=== PATIENT | female | born 1965 | race Caucasian/White ===

== ENCOUNTER 2018-10-10 06:15 | Day surgery (SDC) | payer OTHER ==
[2018-10-10] MEDS ORDERED: hydrALAzine 20 MG INJ (08:19)
[2018-10-10] MEDS: hydrALAzine 20 MG INJ IV (08:20)
[2018-10-10] MEDS ORDERED: FENTAnyl 50 MCG/ML VIAL (09:48)
[2018-10-10] MEDS ORDERED: MIDAZOLAM 1 MG/ML 2 ML INJ (09:48)
[2018-10-10] MEDS ORDERED: ONDANSETRON 4 MG INJ (10:18)
[2018-10-10] MEDS ORDERED: LIDOCAINE 2% (SDV) 5 ML INJ (10:18)
[2018-10-10] MEDS ORDERED: PROPOFOL 20 ML (10:18)
[2018-10-10] MEDS ORDERED: DIPHENHYDRAMINE 50 MG INJ IV (10:30)
[2018-10-10] MEDS ORDERED: ONDANSETRON 4 MG INJ IV (10:30)
[2018-10-10] MEDS ORDERED: FENTAnyl 50 MCG/ML VIAL IV (10:30)
[2018-10-10] MEDS ORDERED: ACETAMINOPHEN 325 MG TAB PO (10:30)
[2018-10-10] MEDS ORDERED: METOCLOPRAMIDE 10 MG INJ IV (10:30)
[2018-10-10] MEDS ORDERED: HYDROmorphONE 1 MG/5 ML IV SYRINGE IV (10:30)
[2018-10-10] MEDS ORDERED: MEPERIDINE 25 MG INJ IV (10:30)
[2018-10-10] MEDS: HYDROmorphONE 1 MG/5 ML IV SYRINGE IV (11:48)
== END 2018-10-10 13:08 | disposition home or self-care (01) ==
LOC: SDS 06:15
DX: N92.1 Excessive and frequent menstruation with irregular cycle (principal); N72 Inflammatory disease of cervix uteri
CPT/HCPCS: 58120; 84702; 84703; 86850; 86900; 86901; 88305

== ENCOUNTER 2019-02-19 14:45 | Emergency (ER) | payer OTHER ==
[2019-02-19] MEDS: HYDROCODONE/APAP (10/325) TAB PO (16:40)
[2019-02-19] MEDS: BACITRACIN 0.9 GM OINT TOP (16:40)
== END 2019-02-19 17:45 | disposition home or self-care (01) ==
LOC: FTE 14:45
DX: S00.81XA Abrasion of other part of head, initial encounter (principal); S30.810A Abrasion of lower back and pelvis, initial encounter; W01.198A Fall on same level from slipping, tripping and stumbling with subsequent striking against other object, initial encounter; Y92.9 Unspecified place or not applicable
CPT/HCPCS: 72220; 99283-25

== ENCOUNTER 2019-07-30 10:04 | Inpatient (IN) | payer OTHER ==
[2019-07-30] MEDS ORDERED: NEOMYC/POLYMYX/BACIT 30 GM OINT (11:21)
[2019-07-30] MEDS ORDERED: SUCCINYLCHOLINE CHLORIDE 100 MG/5 ML SYG IV (12:15)
[2019-07-30] MEDS ORDERED: ROCURONIUM 50 MG INJ (12:15)
[2019-07-30] MEDS ORDERED: NEOSTIGMINE 3 MG/3 ML SYRINGE ×2 (12:15→13:56)
[2019-07-30] MEDS ORDERED: SEVOFLURANE 15 MIN (12:15)
[2019-07-30] MEDS ORDERED: LIDOCAINE 2% (SDV) 5 ML INJ (12:15)
[2019-07-30] MEDS ORDERED: MEPERIDINE 100 MG INJ (12:15)
[2019-07-30] MEDS ORDERED: PROPOFOL 20 ML (12:15)
[2019-07-30] MEDS ORDERED: GLYCOPYRROLATE 0.4 MG INJ ×3 (12:15→13:56)
[2019-07-30] MEDS ORDERED: TRANEXAMIC ACID 1GM/100ML(PMX) 0 ML (12:22)
[2019-07-30] MEDS ORDERED: CEFAZOLIN 1 GM INJ (12:22)
[2019-07-30] MEDS ORDERED: ONDANSETRON 4 MG INJ (12:22)
[2019-07-30] MEDS ORDERED: METOCLOPRAMIDE 10 MG INJ (12:22)
[2019-07-30] MEDS: CEFAZOLIN 1 GM/50 ML (PMX) 50 ML IVPB ×3 (12:30→21:33)
[2019-07-30] MEDS: POLYMYXIN/BACITRACIN 1L IRRIG (12:55)
[2019-07-30] MEDS: TRANEXAMIC ACID 1GM/100ML(PMX) 100 ML IV ×2 (13:00→14:00)
[2019-07-30] MEDS ORDERED: FENTAnyl 50 MCG/ML VIAL (14:37)
[2019-07-30] MEDS: FENTAnyl 50 MCG/ML VIAL IV ×2 (14:50→15:02)
[2019-07-30] MEDS ORDERED: HYDROmorphONE 1 MG/5 ML IV SYRINGE IV ×2 (15:00)
[2019-07-30] MEDS ORDERED: DIPHENHYDRAMINE 50 MG INJ IV (15:00)
[2019-07-30] MEDS ORDERED: hydrALAzine 20 MG INJ IV (15:00)
[2019-07-30] MEDS ORDERED: EPHEDrine 25 MG/5 ML SYG IV (15:00)
[2019-07-30] MEDS ORDERED: morphine 2 MG INJ IV (15:00)
[2019-07-30] MEDS ORDERED: FENTAnyl 50 MCG/ML VIAL IV ×2 (15:00)
[2019-07-30] MEDS ORDERED: MEPERIDINE 25 MG INJ IV (15:00)
[2019-07-30] MEDS ORDERED: METOCLOPRAMIDE 10 MG INJ IV (15:00)
[2019-07-30] MEDS ORDERED: MIDAZOLAM 1 MG/ML 2 ML INJ IV (15:00)
[2019-07-30] MEDS: ONDANSETRON 4 MG INJ IV ×2 (15:10→21:30)
[2019-07-30] MEDS: HYDROmorphONE 1 MG/5 ML IV SYRINGE IV ×2 (15:11→15:17)
[2019-07-30] MEDS: KETOROLAC 30 MG INJ IV ×2 (15:12→21:34)
[2019-07-30] MEDS: LABETALOL HCL 20MG INJ IV (15:13)
[2019-07-30] MEDS: LACTATED RINGER'S 1,000 ML IV (17:45)
[2019-07-30] MEDS: METOCLOPRAMIDE 10 MG INJ IV (19:28)
[2019-07-30] MEDS: HYDROCODONE/APAP (5/325) TAB PO (19:28)
[2019-07-30] MEDS: ASPIRIN 325 MG TAB PO (20:21)
[2019-07-30] MEDS: SOD CHLORIDE 0.9% 1,000 ML IV (22:22)
[2019-07-31] MEDS: KETOROLAC 30 MG INJ IV (06:07)
[2019-07-31] MEDS: ONDANSETRON 4 MG INJ IV (06:08)
[2019-07-31] MEDS: CEFAZOLIN 1 GM/50 ML (PMX) 50 ML IVPB (06:08)
[2019-07-31] MEDS: ASPIRIN 325 MG TAB PO ×2 (08:46→20:11)
[2019-07-31] MEDS: KETOROLAC 15 MG INJ IV (11:01)
[2019-07-31] MEDS: traMADol 50 MG TAB PO ×2 (11:58→18:28)
[2019-07-31] MEDS: SOD CHLORIDE 0.9% 1,000 ML IV ×2 (12:48→13:22)
[2019-07-31] MEDS: BISACODYL (EC) 5 MG TAB PO (20:11)
[2019-07-31] MEDS: GABAPENTIN 300 MG CAP PO (20:11)
[2019-07-31] MEDS: HYDROCODONE/APAP (5/325) TAB PO (20:11)
[2019-08-01] MEDS: SOD CHLORIDE 0.9% 1,000 ML IV (04:14)
[2019-08-01 05:23] LABS: ADD MAN DIFF? NO
[2019-08-01 05:29] LABS: BASOPHILS % 0.1 % (0.0-2.0); HEMATOCRIT 34.8 % (37.0-47.0); HEMOGLOBIN 11.7 g/dl (12.0-16.0); LYMPHOCYTES # 1.2 10^3/ul (0.8-2.9); LYMPHOCYTES % 14.6 % (15.0-51.0); MEAN CORPUSCULAR HEMOGLOBIN 30.8 pg (29.0-33.0); MEAN CORPUSCULAR HGB CONC 33.6 g/dl (32.0-37.0); MEAN CORPUSCULAR VOLUME 91.6 fl (82.0-101.0); MEAN PLATELET VOLUME 10.1 fl (7.4-10.4); MONOCYTE # 0.7 10^3/ul (0.3-0.9); MONOCYTES % 7.9 % (0.0-11.0); NEUTROPHIL # 6.3 10^3/ul (1.6-7.5); PLATELET COUNT 202 10^3/UL (140-415); RED CELL DISTRIBUTION WIDTH 12.2 % (11.5-14.5)
[2019-08-01 05:29] LABS: WHITE BLOOD COUNT 8.2 10^3/ul (4.8-10.8)
[2019-08-01 05:50] LABS: ALANINE AMINOTRANSFERASE 16 IU/L (13-69); ALBUMIN 3.7 g/dl (3.3-4.9); ALBUMIN/GLOBULIN RATIO 1.15; ALKALINE PHOSPHATASE 73 IU/L (42-121); ANION GAP 6 (5-13); ASPARTATE AMINO TRANSFERASE 23 IU/L (15-46); BILIRUBIN,INDIRECT 0.6 mg/dl (0-1.1); BILIRUBIN,TOTAL 0.6 mg/dl (0.2-1.3); BLOOD UREA NITROGEN 6 mg/dl (7-20); CALCIUM 8.4 mg/dl (8.4-10.2); CARBON DIOXIDE 27 mmol/L (21-31); CHLORIDE 102 mmol/L (97-110); CREATININE 0.48 mg/dl (0.44-1.00); Estimated GFR > 60 mL/min (>60); GLUCOSE 140 mg/dl (70-220); POTASSIUM 3.3 mmol/L (3.5-5.1); SODIUM 135 mmol/L (135-144); TOTAL PROTEIN 6.9 g/dl (6.1-8.1)
[2019-08-01] MEDS: HYDROCODONE/APAP (5/325) TAB PO ×3 (06:28→21:13)
[2019-08-01] MEDS: GABAPENTIN 300 MG CAP PO ×3 (06:28→21:12)
[2019-08-01] MEDS: POLYETHYLENE GLYCOL 17 GM PACKET PO (08:30)
[2019-08-01] MEDS: BISACODYL (EC) 5 MG TAB PO ×2 (08:31→21:12)
[2019-08-01] MEDS: ASPIRIN 325 MG TAB PO ×2 (08:31→21:12)
[2019-08-01] MEDS: POTASSIUM CHLORIDE (SR) 20 MEQ TAB PO (11:29)
[2019-08-01 15:23] LABS: LIPASE 54 U/L (23-300)
[2019-08-02] MEDS: KETOROLAC 15 MG INJ IV (02:17)
[2019-08-02] MEDS: ONDANSETRON 4 MG INJ IV (02:19)
[2019-08-02] MEDS: AL HYDROX/MG HYDROX/SIMETH 30 ML CUP PO (04:37)
[2019-08-02] MEDS: PANTOPRAZOLE (EC) 40 MG TAB PO (05:19)
[2019-08-02] MEDS: POLYETHYLENE GLYCOL 17 GM PACKET PO (08:50)
[2019-08-02] MEDS: ASPIRIN 325 MG TAB PO ×2 (08:50→20:21)
[2019-08-02] MEDS: BISACODYL (EC) 5 MG TAB PO (08:50)
[2019-08-02] MEDS: traMADol 50 MG TAB PO ×3 (08:53→20:55)
[2019-08-02] MEDS: MAGNESIUM CITRATE 300 ML BTL PO (14:00)
[2019-08-02] MEDS: GABAPENTIN 300 MG CAP PO (15:03)
[2019-08-02] MEDS: POTASSIUM CHLORIDE 20 MEQ POWDER FOR ORAL SOLN PO (15:04)
== END 2019-08-02 21:20 | disposition home health service (06) | DRG 470 ==
LOC: SDS 10:04 → REC 14:28 → MS1 15:47
PROVIDERS: Specialist
PROC: 0SRC0J9 Replacement of Right Knee Joint with Synthetic Substitute, Cemented, Open Approach (ICD-10-PCS; principal; 2019-07-30 12:15)
DX: M17.11 Unilateral primary osteoarthritis, right knee (principal); E78.5 Hyperlipidemia, unspecified; E66.01 Morbid (severe) obesity due to excess calories; Z68.35 Body mass index [BMI] 35.0-35.9, adult; E87.6 Hypokalemia; K21.9 Gastro-esophageal reflux disease without esophagitis; K29.70 Gastritis, unspecified, without bleeding; Z79.82 Long term (current) use of aspirin
CPT/HCPCS: 80053; 83690; 85025; 87086; 88304; 88311; 97110; 97116; 97161; 97530; 99217